=== PATIENT | female | born 1980 | race Caucasian/White ===

== ENCOUNTER 2020-03-12 08:45 | Outpatient (RCR) | payer BC, SELFPAY ==
[2020-03-12 08:56] VITALS: BMI 42.5
[2020-03-12 08:57] VITALS: BMI 42.5
== END 2020-05-27 14:40 | disposition home or self-care (01) ==
LOC: ANHDMC 08:45
PROVIDERS: PCP Nurse Practitioner Family; Visit Provider Obstetrics & Gynecology
DX: O24.419 Gestational diabetes mellitus in pregnancy, unspecified control (principal); Z3A.00 Weeks of gestation of pregnancy not specified; Z71.89 Other specified counseling; Z71.3 Dietary counseling and surveillance
CPT/HCPCS: 97802; G0108

== ENCOUNTER 2020-04-30 07:47 | Outpatient (RCR) | payer BC, SELFPAY ==
[2020-03-28 10:52] VITALS: BP 122/69; PULSE 111
[2020-04-04 17:18] VITALS: BP 121/68; PULSE 93
[2020-04-11 09:53] VITALS: BP 112/64; PULSE 95
[2020-04-18 17:01] VITALS: BP 117/62; PULSE 82
[2020-04-24 11:06] VITALS: BP 113/68; PULSE 89
--- NOTE | ~2020-04-30 | US_ITS ---
EXAMINATION: US OB BPP wo non-stress DATE: 04/24/2020 11:00 INDICATION: Gestational diabetes. Variable decelerations. Third trimester. TECHNIQUE: Real-time pelvic ultrasound was performed. COMPARISON: None. FINDINGS: There is a single living fetus in vertex presentation. The placenta is anterior. heart rate is 131 beats per minute (bpm). Biophysical profile performed by the technologist: breathing (30 sec sustained breathing in 30 minutes): 2 out of 2 movement (3 gross body movements in 30 minutes): 2 out of 2 tone (one episode of limvovy-uihgbxlus-wzhcbtn limb movement): 2 out of 2 Amniotic fluid pocket (2 cm): 2 out of 2 Total score: 8 out of 8 IMPRESSION: 1. Single living fetus in vertex presentation. 2. Biophysical profile 8 out of 8. Reviewed, dictated and finalized at location A.
[2020-04-30 08:24] VITALS: BP 114/65; PULSE 93
== END 2020-05-09 08:10 | disposition home or self-care (01) ==
LOC: ANHOBOP 07:47
PROVIDERS: PCP Nurse Practitioner Family; Visit Provider Obstetrics & Gynecology
DX: P59.9 Neonatal jaundice, unspecified (principal)
CPT/HCPCS: 59025; 76819

== ENCOUNTER 2020-05-06 13:32 | Observation (INO) | payer BC, SELFPAY ==
--- NOTE | 2020-05-06 13:32 | OBADM ---
This patient, Aviva Arreola, admitted to the OB room Labor/Delivery/Recovery 109 for observation. Patient/family oriented to hospital policies and general routines including ID bracelet, bed and alarms, visiting hours, pain management, procedures, bathroom and other care routines, personal items, smoking policy, room service/diet, and visiting hours. Patient/Family are encouraged to report perceived risks to care and to ask questions if they do not understand what they are told or what they should do.
[2020-05-06 13:50] VITALS: BMI 42.1
--- NOTE | 2020-05-26 09:07 | PM.OBTRLD ---
OB - Triage/Final Diagnosis Visit Information Comments/Additional reasons for admission: I have assessed the risk for this patient, Aviva Arreola, and determined that she would benefit from observation care. Final Diagnosis (1) False labor: Code(s): O47.9 - False labor, unspecified Status: Acute
== END 2020-05-06 15:12 | disposition home or self-care (01) ==
PROVIDERS: Admitting Provider Obstetrics & Gynecology; PCP Nurse Practitioner Family; Visit Provider Obstetrics & Gynecology
DX: O47.1 False labor at or after 37 completed weeks of gestation (principal); Z3A.38 38 weeks gestation of pregnancy
CPT/HCPCS: 84112; G0378; G0379

== ENCOUNTER 2020-05-08 06:13 | Inpatient (IN) | payer BC, SELFPAY ==
[2020-05-08] VITALS (108 sets, daily range): BP systolic 99–162; BP diastolic 48–147; PULSE 80–149; RESP 16; TEMP 36.6–37.3; O2SAT 95–100; BMI 42.1
--- OUTSIDE RECORDS SUMMARY | 2020-05-08 06:17 | XMS_ITS | Encounter Summary ---
:1980 Author Care Team Providers Name Role Phone Lala Shetty NP Primary Care Provider Unavailable Reason for Visit injection Assessment and Plan 1. Administration of diphtheria, pertussis, and tetanus vaccine ? Adacel (Tdap Adolesn/Adult )(PF)2 Lf-(2.5-5-3-5)-5 Lf/0.5 mL IM syringe Discussion Note: None recorded.Patient educational handouts: No information available. Plan of Care Reminders Provider Appointments None ? ? recorded. Lab None ? ? recorded. Referral None ? ? recorded. Procedures None ? ? recorded. Surgeries None ? ? recorded. Imaging None ? ? recorded. Medications Name Start Date ? ? albuterol sulfate HFA 90 mcg/actuation aerosol inhaler ? INHALE 2 PUFFS BY MOUTH EVERY 6 HOURS NEEDED azithromycin 250 mg tablet ? TAKE 2 TABLETS (500 MG) BY ORAL ROUTE O NCE DAILY FOR 1 DAY THEN 1 TABLET (250 MG) BY ORAL ROUTE ONCE DAILY FOR 4 DAYS benzonatate 200 mg capsule ? Take 1 capsule 3 times a day by oral route as needed for 7 days. ipratropium 0.5 mg-albuterol 3 mg (2.5 mg base)/3 mL n ebulization soln ? Inhale 3 mL 4 times a day by nebulization route. [place] 0.1 mg-20 mcg tablet ? oxycodone-acetaminophen 5 mg-325 mg tablet ? prednisone 10 mg tablet ? Take 1 tablet every day by oral route as directed for 7 days. Medications
--- OUTSIDE RECORDS SUMMARY | 2020-05-08 06:17 | XMS_ITS ---
:1980 Author Care Team Providers Name Role Phone APOLLO KAUFMAN MD Primary Care Provider [phone] JENNIFER DOMINGUEZ MD Primary Care Provider [phone] Allergies Code Code System Name Reaction Severity Status Onset 6211 RxNorm Lactose Anaphylaxis ? Active ? NKDA ? Medications Name Status Start Date Stop Date ? ? Mirena 20 mcg/24 hours (6 yrs) 52 mg intrauterine device Active 12/26/2012 Not available Take by intrauterine route. Problems Name Status Onset Date Source ? Obesity Active ? Encounter Tobacco Dependence Syndrome Active ? [place] unter Procedures Date Name Performed by ? 02/08/2002 Appendectomy Information not avai lable Results Lab Results None recorded. Past Encounters None recorded. Social History Tobacco Smoking Status Heavy Tobacco Smoker (1/2 pack per a day) Vaccine List None recorded. Plan of Care Reminders Provider Appointments None ? ? recorded. Lab None ? ? recorded. Referral None ? ? recorded. Procedures None ? ? recorded. Surgeries None ? ? recorded. Imaging None ?
--- OUTSIDE RECORDS SUMMARY | 2020-05-08 06:17 | XMS_ITS ---
:1980 Author Care Team Providers Name Role Phone WILLIAM TAYLOR NP Primary Care Provider Unavailable Allergies Code Code System Name Reaction Severity Status Onset NKDA ? Medications Name Status Start Date Stop Date ? ? albuterol sulfate HFA 90 mcg/actuation aerosol inhaler Active ? Not available INHALE 2 PUFFS BY MOUTH EVERY 6 HOURS NEEDED amoxicillin 500 mg capsule Completed ? 10/06 TK ONE C PO TID azithromycin 250 mg tablet Active ? Not a vailable benzonatate 200 mg capsule Active ? Not a vailable ibuprofen 600 mg tablet Completed ? 09/03/19 19 TK ONE T PO Q 6 H PRF PAIN. TK WF. ipratropium 0.5 mg-albuterol 3 mg (2.5 mg base)/3 mL nebulizatio n soln Active ? Not available Inhale 3 mL 4 times a day by nebulization route. [place] 0.1 mg-20 mcg tablet Active ? No t available oxycodone-acetaminophen 5 mg-325 mg Active ? Not available tablet prednisone 10 mg tablet Active ? Not avai lable Problems Name Status Onset Date Source ? Vitamin D Deficiency Active 10/06/2016 ? Family History of Diabetes Mellitus Active 10/06/2016 ? Family History of Thyroid Disorder Active 10/06/2016 ? Active or Passive Immunization Active 10/06/2016 ? Adult Health Examination Active 10/06/2016 ? Hyperlipidemia Screening Active 10/06/2016 ? Exercise-induced Asthma Active 03/23/2017 ? Cough Active 03/23/2017 ? Smoker Active 01/23/2019 ? Procedures Date
--- OUTSIDE RECORDS SUMMARY | 2020-05-08 06:17 | XMS_ITS ---
:1980 Author Care Team Providers Name Role Phone JENNIFER DOMINGUEZ MD Primary Care Provider [phone] Allergies Code Code System Name Reaction Severity Status Onset NKDA ? Medications Name Status Start Date Stop Date ? ? albuterol sulfate HFA 90 mcg/actuation aerosol inhaler Active ? Not available INHALE 2 PUFFS Q 4 H PRN amoxicillin 500 mg capsule Active ? Not a vailable TK ONE C PO TID azithromycin 250 mg tablet Active ? Not a vailable benzonatate 200 mg capsule Active ? Not a vailable Diflucan 200 mg tablet Active ? Not avail able Take 1 tablet every 72 hours by oral route. ibuprofen 600 mg tablet Active ? Not avai lable TK ONE T PO Q 6 H PRF PAIN. TK WF. [place] 0.1 mg-20 mcg tablet Active ? No t available oxycodone-acetaminophen 5 mg-325 mg tablet Active ? Not available prednisone 10 mg tablet Active ? Not avai lable sulfamethoxazole 800 mg-trimethoprim 160 Active ? Not available mg tablet Problems Name Status Onset Date Source ? Urinary Tract Infectious Disease Active ? Encounter Vaginitis and Vulvovaginitis Active ? Enc ounter Procedures Date Name Performed by ? ? Appendectomy Information not avai lable Results Lab Results Date Name Specimen Result Interpretation Descriptio
[2020-05-08 06:55] LABS: Glucose Point of Care 107 (65-105)
[2020-05-08 07:19] LABS: Basophils Percent Auto 0.3 % (0.2-1.2); Eosinophils Absolute Auto 0.2 K/mm3 (0-0.3); Eosinophils Percent Auto 1.3 % (0-4.4); Hemoglobin 12.6 g/dL (12.0-15.0); Immature Granulocyte Absolute 0.09 K/mm3 (0.00-0.031); Immature Granulocyte Percent A 0.8 % (0-0.5); Lymphocytes Absolute Auto 2.17 K/mm3 (0.9-3.2); Lymphocytes Percent Auto 19.1 % (18.3-44.2); Mean Corpuscular HGB Conc 33.2 g/dl (32-36); Mean Corpuscular Volume 84.4 fl (80-100); Mean Platelet Volume 9.3 fl (7.4-10.4); Monocytes Absolute Auto 0.7 K/mm3 (0.1-0.6); Monocytes Percent Auto 6.2 % (2.6-8.5); Neutrophils Absolute Auto 8.2 K/mm3 (1.3-6.7); Neutrophils Percent Auto 72.3 % (45.5-73.1); Platelet Count Result 256 k/mm3 (150-375); Red Cell Distribution Width 14.1 % (11.5-14.5); White Blood Count 11.4 K/mm3 (4.5-10.0)
[2020-05-08] MEDS: OXYTOCIN 30 UNITS/NS 500 ML 30 UNITS/500 ML BAG IV CONT ×2 (07:20→14:50)
[2020-05-08] MEDS: LACTATED RINGERS 1,000 ML 125 ML IV CONT (07:20)
--- NOTE | 2020-05-08 08:45 | WPDOBADMIT ---
Obstetrics - Admit Note Admission Note: record reviewed. Additions to the history and/or subsequent changes in the physical findings follow. 39 y/o at 38 2/7 weeks with poorly controlled A2DM, here for induction of labor. GBS neg. AVSS NST reactive TOCO: contractions every 4 min ABD soft, nontender, gravid, vertex EXT nontender Cervix 4/50/-2. AROM with clear fluid. IUPC placed. Accucheck 107 A: IUP a 38 2/7 weeks. A2DM with worsening glycemic control. P: Offered induction of labor. Reviewed risks, benefits, alternatives, including risks associated with prematurity. She understands and elects to continue with induction.
[2020-05-08 09:02] LABS: Glucose Point of Care 83 (65-105)
[2020-05-08 11:09] LABS: Glucose Point of Care 85 (65-105)
--- NOTE | 2020-05-08 12:10 | WPDANESEPPF ---
Anes - Initial Pre Proc Eval Date/Time: 05/08/20 12:10 Surgeon: Pipe Knott MD Pre Op Diagnosis: Induction of labor Patient Data Age: 39 Gender: F Height: 5 ft 3 in Weight: 108 kg Last Vital Signs Temp 37.3 C 05/08/20 12:08 Pulse 95 05/08/20 12:08 BP 119/60 05/08/20 12:08 Pulse Ox 100 05/08/20 12:08 Allergies Allergy/AdvReac Type Severity Reaction Status Date / Time No Known Allergies Allergy Verified 04/11/20 09:29 Home Medications Medication Instructions Recorded Confirmed Type PNV cmb#95-ferrous fumarate-FA 1 tablet PO DAILY 04/11/20 05/08/20 History [] cetirizine [Zyrtec] 10 mg PO HS 04/11/20 05/08/20 History fluticasone propionate 1 puff INHALATION BID 04/11/20 05/08/20 History glyburide 5 mg PO BID 04/11/20 05/08/20 History Laboratory Tests 05/08/20 05/08/20 05/08/20 06:33 06:53 06:53 WBC 11.4 K/mm3 H K/mm3 (4.5-10.0) RBC 4.50 M/mm3 M/mm3 (4.2-5.4) Hgb 12.6 g/dL g/dL (12.0-15.0) Hct 38.0 % % (37.0-47.0) MCV 84.4 fl fl (80-100) MCH 28.0 pg pg (26-34) MCHC 33.2 g/dl g/dl (32-36) RDW 14.1 % % (11.5-14.5) Plt Count 256 k/mm3 k/mm3 (150-375) MPV 9.3 fl fl (7.4-10.4) Immature Gran % (Auto) 0.8 % H % (0-0.5) Neut % (Auto) 72.3 % % (45.5-73.1) Lymph % (Auto) 19.1 % % (18.3-44.2) [place] % (Auto) 6.2 % % (2.6-8.5) Eos % (Auto) 1.3 % % (0-4.4) Baso % (Auto) 0.3 % % (0.2-1.2) Lymph # (Auto) 2.17 K/mm3 K/mm3 (0.9-3.2) [place] # (Auto) 0.7 K/mm3 H K/mm3 (0.1-0.6) Eos # (Auto) 0.2 K/mm3 K/mm3 (0-0.3) Baso # (Auto) 0.0 K/mm3 K/mm3 (0.0-0.1) Abs Immat Gran (auto) 0.09 K/mm3 H K/mm3 (0.00-0.031) Absolute Neuts (auto) 8.2 K/mm3 H K/mm3 (1.3-6.7) Absolute Nucleated RBC 0.0 K/mm3 K/mm3 (0.0-0.012) Nucleated RBC % 0.0 % % (0.0-0.2) POC Capillary Glucose 107 mg/dl mg/dl (65-105) RPR Pending Blood Type Antibody Screen 05/08/20 05/08/20 05/08/20 06:53 09:01 11:06 WBC RBC Hgb Hct MCV MCH MCHC RDW Plt Count MPV Immature Gran % (Auto) Neut % (Auto) Lymph % (Auto) [place] % (Auto) Eos % (Auto) Baso % (Auto) Lymph # (Auto) [place] # (Auto) Eos # (Auto) Baso # (Auto) Abs Immat Gran (auto) Absolute Neuts (auto) Absolute Nucleated RBC Nucleated RBC % POC Capillary Glucose 83 mg/dl mg/dl 85 mg/dl mg/dl (65-105) (65-105) RPR Blood Type A Positive Antibody Screen Negative Patient hx anesthesia problems: none Family hx anesthesia problems: none PMFSH Past Medical History Medical History Diabetes Family History Family History Sibling Hypertension Mother Hypertension Diabetes mellitus Social History Social History Smoking status: Former smoker Tobacco type: cigarettes Second hand tobacco smoke exposure: No Smoking end date: 07/01/20 Substance use: never Gender identity (if verbalized by the patient): Female Spiritual care concerns: No Anes - Eval Final PreProcedure Day of Procedure 05/08/20 12:10 Patient weight: morbidly obese Heart: regular rate and rhythm Lungs: clear to auscultation Neurological: alert and oriented ASA classification: III Emergent: no Anesthetic plan: proceed Anesthesia type and monitoring: regional
[2020-05-08 13:03] LABS: Glucose Point of Care 92 (65-105)
[2020-05-08 13:25] LABS: Rapid Plasma Reagin Non-Reactive (NonReactive)
--- NOTE | 2020-05-08 14:30 | P.PCNOB_ITS ---
OB - Delivery Note Procedure Delivery date: 05/08/20 Procedure: Induction of labor with events: Gestational Diabetes Intrapartal events: None Induction method: AROM and per pitocin protocol Delivery monitor: external FHT, external uterine and internal uterine Route of delivery: Laceration Description: None Specimen: Yes (cord blood) Quantitative Blood Loss (ml): 120 Anesthesia type: Epidural Disposition: PACU Complications: None Narrative: 39 y/o at 38 2/7 weeks gestation who presented to the hospital for induction of labor. Oxytocin was administered intravenously. Accuchecks were between 83 and 107 throughout labor. Amniotomy was performed with return of clear fluid. She received an epidural for pain control. Her labor progressed and her cervix dilated completely. She pushed with good effort and delivered the 's head to the perineum, followed by the body. The nose and mouth were bulb suctioned. After a delay, the cord was clamped and cut. The was handed off the field. Cord blood was collected. The placenta delivered spontaneously and was grossly normal in appearance. The usual 3 vesse l cord was noted. The perineum was intact. Needle and instrument counts were correct. The patient was taken to recovery room in stable condition. The infant went to the nursery in stable condition. I was present and scrubbed for the entire delivery. [place] Baby Date of : 05/08/20 Time of : 14:12 Weeks of gestation at delivery: 38 Infant gender: Female Weight (pounds): 7 Weight (ounces): 14 presentation: vertex position: Left Occiput Anterior Placenta delivery description: Spontaneous and Normal Configuration cord vessel description: 3 Vessels and Delayed Cord Clamping score one minute: 9 score five minutes: 9
[2020-05-08] MEDS: IBUPROFEN 600 MG TABLET PO (19:49)
[2020-05-08] MEDS: FLUTICASONE PROP 44 MCG (*SP) 10.6 GM 1 PUFF INHALATION (20:00)
[2020-05-09] MEDS: IBUPROFEN 600 MG TABLET PO ×4 (04:47→23:35)
[2020-05-09 05:45] LABS: Hematocrit 37.9 % (37.0-47.0); Hemoglobin 12.2 g/dL (12.0-15.0)
[2020-05-09 07:25] VITALS: BP 123/66; PULSE 82; RESP 18; TEMP 37; O2SAT 98
--- NOTE | 2020-05-09 07:30 | PC.NURSE ---
PT introductions made and plan of care discussed per post . pain management, breast feeding, daily care activities. PT verbalized understanding of such care.
--- NOTE | 2020-05-09 08:12 | WPDANLDPN2 ---
Anes-Prog Note L&D Date/Time: 05/09/20 08:12 Comfortable throughout: labor and delivery Neuraxial method: epidural Epidural/Spinal procedure site: clean & non-tender Neuro status: Neuro function grossly intact. Cardiovascular status: normal Respiratory status: normal Airway patency: baseline Mental status: baseline Post-Op hydration status: normal Vital Signs: Last Vital Signs Temp 37.0 C 05/09/20 07:25 Pulse 82 05/09/20 07:25 Resp 18 05/09/20 07:25 BP 123/66 05/09/20 07:25 Pulse Ox 98 05/09/20 07:25 Pain score (VAS): 0 I/O: Intake & Output 05/08/20 05/09/20 05/09/20 23:59 07:59 15:59 Output Total 105 Balance -105 Post-procedural complaints: none Patient feedback: Patient satisfied with anesthetic care.
--- NOTE | 2020-05-09 08:15 | PC.NURSE ---
Consulted with patient, mother reports infant has fed well since . Mother has nipple discomfort with latch during first part of the feeding that quickly resolves. Reviewed nipple care of lanolin, warm compresses several times per day and gel pads as needed. Reviewed infant feeding cues, frequencies, duration of feedings, feeding elimination flow sheet, and signs of adequate intake. Demonstrated stimulation techniques to wake for feeding. Assisted with to breast. Reviewed positioning/alignment in cross cradle, holding breast in U hold and guided asymmetrical latch on. Infant was able to latch within a few attempts. Infant nursed eagerly, with steady draws and frequent swallowing noted. Reviewed signs of a correct latch, effective nursing and suck swallow ratio. Infant was able to maintain latch. Mother reported tenderness, infant had slipped to shallow latch. Demonstrated how to adjust latch more deeply while feeding. Mother quickly reports she can feel infant is latched more deeply and has minimal tenderness. Mother reports she was using the cradle and infant was not latched as deep. Suggested to stimulate infant while feeding to keep awake and nursing effectively for increased stimulation and increased intake. Instructed mother to call out for RN assistance if she is unable to latch for feeding or she has discomfort with nursing.
[2020-05-09] MEDS: FLUTICASONE PROP 44 MCG (*SP) 10.6 GM 1 PUFF INHALATION (09:30)
[2020-05-09] MEDS: MULTIVIT/MIN/PREN/FOL AC/IRON TABLET 1 TAB PO (09:50)
[2020-05-09] MEDS: ACETAMINOPHEN 325 MG TABLET 650 MG PO ×3 (09:50→23:35)
[2020-05-09 11:54] VITALS: BP 112/71; PULSE 76; RESP 18; TEMP 36.8; O2SAT 98
--- NOTE | 2020-05-09 12:01 | PM.OBPNVD ---
OB - PN: Subj Subjective Date/time seen: 05/09/20 12:01 Narrative: Pain OK. OB - PN: Obj Data Labs CBC & Chem 7: 05/09/20 04:53 Labs: Laboratory Results - last 24 hr 05/08/20 05/08/20 05/09/20 06:53 13:01 04:53 Hgb 12.2 Hct 37.9 POC Capillary Glucose 92 RPR Non-reactive OB - PN A/P Plan Comments: A: PPD#1, doing well. P: Routine care. Exam Psych: Other: AVSS ABD soft, nontender, fundus firm EXT nontender
--- NOTE | 2020-05-09 12:01 | PM.OBDSVD ---
DS: Admitting Diagnosis Admitting Diagnosis Admitting Diagnosis: IUP at 38 2/7 weeks Poorly controlled A2DM Favorable cervix DS: Discharge Diagnosis Discharge Diagnosis (1) (normal spontaneous vaginal delivery): Code(s): O80 - Encounter for full-term uncomplicated delivery Status: Acute (2) Gestational diabetes mellitus: Code(s): O24.419 - Gestational diabetes mellitus in , unspecified control Status: Acute OB - DS: Summary OB Procedures : None OB Procedures Intrapartum: Spontaneous Vag Delivery OB Procedures: : None DS: Data Data Completed and Pending Pending studies at discharge: Pending at discharge 05/08/20 14:43 Surgical [PTH] Routine Labs on day of discharge: Labs from last 24 hours 05/09/20 05/08/20 05/08/20 04:53 13:01 06:53 Hgb 12.2 Hct 37.9 POC Capillary Glucose 92 RPR Non-reactive Discharge Plan Discharge Attending physician on discharge: Pipe Knott Consulting providers: [facility] Discharging Clinician: Pipe Knott Patient Disposition: Home, Self-Care Activity: no preference Diet: regular Discharge Instructions: Education: Mom and Baby Guide Given to: Mother Follow-Up: Call your delivering provider's office for an appointment to be seen in: 6 Weeks Mom and baby should come to the [facility] for the follow-up appointment. Appointment Date/Time: May 13, 2020 at 11:00 am What to expect at your follow-up visit: Blood Pressure Check Physical Assessment Call [phone] if you are unable to keep your appointment time. BREAST CARE: * Wear a snug supportive bra. * For engorgement discomfort: Breast Feeding: * Apply warm moist washcloths * Express milk as needed to relieve engorgement * Wear loose clothing * For sore nipples: * Identify correct latch-on * Apply warm moist washcloths before and after nursing * Air dry nipples after nursing * May apply Lansinoh cream to nipples EPISIOTOMY/PERINEAL CARE: * Until bleeding stops, use your chanda bottle after urinating * Change your pad frequently throughout the day * You may take sitz baths several times a day (fill your bathtub with warm water and soak for 20 minutes.) Do NOT bathe in the water * No tub baths until seen by your physician - You may shower ACTIVITY: * Rest as much as possible. * Do not exercise or lift anything heavier than your baby (such as laundry or other children.) * Avoid stairs or driving as much as possible. * Do not put anything into the vagina. No douching, tampons, or sexual activity until seen by physician. NOTIFY PHYSICIAN IF YOU HAVE ANY QUESTIONS OR IF ANY OF THE FOLLOWING SYMPTOMS OCCUR: * If your perineum becomes red, swollen, or more painful than what you have experienced in the hospital. * If your vaginal bleeding becomes foul smelling. * If your vaginal bleeding becomes more heavy than a period or if your bleeding changes from pink to bright red. However, you may pass an occasional walnut-sized clot once or twice for the first week . * If you experience a sharp, shooting pain in you calves. * If you discover a hard, reddened area on your breast or if you experience flu-like symptoms. *Temperature of 100.4 or higher DIET: * Eat regular, well-balanced meals. * Drink plenty of fluids daily. If , drink to thirst.Call or return if temperature above 100.4? F, increased abdominal pain, increased vaginal bleeding or any new problems. Stand Alone Forms: General Discharge Information Follow-up/Referrals: Pipe Knott MD [Physician] - 6 Weeks Discharge Medications: New ibuprofen 600 mg tablet 600 mg PO Q6H PRN (Reason: cramps) Qty: 30 RF: 0 acetaminophen [Mapap (acetaminophen)] 325 mg Tablet 650 mg PO Q6H PRN (Reason: Mild Pain (1-3) Or Head
[2020-05-09 20:30] VITALS: BP 124/81; PULSE 78; RESP 18; TEMP 36.6; O2SAT 99
[2020-05-10] MEDS: IBUPROFEN 600 MG TABLET PO (05:37)
[2020-05-10] MEDS: ACETAMINOPHEN 325 MG TABLET 650 MG PO (05:37)
[2020-05-10 07:45] VITALS: BP 126/88; PULSE 77; RESP 16; TEMP 36.5; O2SAT 99
--- NOTE | 2020-05-10 07:46 | PM.OBDSVD ---
DS: Admitting Diagnosis Admitting Diagnosis Admitting Diagnosis: gestational diabetes OB - DS: Summary OB Procedures : None OB Procedures Intrapartum: Spontaneous Vag Delivery OB Procedures: : None Status at Discharge Functional status at discharge: independent ambulation Overall status at discharge: patient is back to baseline Time Spent with Patient Time attestation: Total time spent providing and/or coordinating discharge services: Time spent: Less than 30 minutes Exam Const: General: comfortable and no acute distress Resp: Effort & Inspection: normal respiratory effort Auscultation: clear to auscultation bilaterally Cardio: Rate: regular rate GI: GI Palp: Yes Soft to palpation Auscultation: normal bowel sounds Other: Fundus firm below umbilicus Psych: Appearance: grossly normal Mental Status: mental status grossly normal Affect: normal affect DS: Data Data Completed and Pending Pending studies at discharge: Pending at discharge 05/08/20 14:43 Surgical [PTH] Routine Discharge Plan Discharge Attending physician on discharge: Pipe Knott Discharging Clinician: Pipe Knott Patient Disposition: Home, Self-Care Activity: no preference Diet: regular Discharge Instructions: Call or return if temperature above 100.4? F, increased abdominal pain, increased vaginal bleeding or any new problems. Stand Alone Forms: General Discharge Information Follow-up/Referrals: Piep Knott MD [Physician] - 6 Weeks Discharge Medications: New ibuprofen 600 mg tablet 600 mg PO Q6H PRN (Reason: cramps) Qty: 30 RF: 0 acetaminophen [Mapap (acetaminophen)] 325 mg Tablet 650 mg PO Q6H PRN (Reason: Mild Pain (1-3) Or Headache) Qty: 30 RF: 0 ibuprofen 600 mg Tablet 600 mg PO Q6H PRN (Reason: Cramping) Qty: 30 RF: 0 Azz-U-Lzueti Cream 1 applic topical PRN PRN (Reason: Sore Nipples) Qty: 28 RF: 0 Continued cetirizine [Zyrtec] 10 mg Tablet 10 mg PO HS RF: 0 glyburide 5 mg Tablet 5 mg PO BID RF: 0 fluticasone propionate 44 mcg/actuation Hfa Aerosol Inhaler 1 puff INHALATION BID RF: 0 PNV cmb#95-ferrous fumarate-FA [] 28 mg iron- 800 mcg Tablet 1 tablet PO DAILY RF: 0 Date of admission: 05/08/20 06:13 Primary Care Provider: Sena,Lala Birch Admitting Provider: Pipe Knott Attending physician on admission: Pipe Knott Condition: Stable
--- NOTE | 2020-05-10 10:05 | PC.NURSE ---
Mother called out for assist with feeding. Mother reports nipple discomfort with latch and during most of feeding. Both nipples are slightly excoriated from possible shallow latch. Reviewed nipple care of lanolin, warm compresses several times per day and gel pads as needed. Reviewed positioning/alignment in cross cradle, holding breast in U hold and guided asymmetrical latch on. was able to latch within a few attempts. Infant nursed eagerly, with steady draws and frequent swallowing noted. Reviewed signs of a correct latch, effective nursing and suck swallow ratio. Infant was able to maintain latch. Mother reported tenderness at times, had slipped to shallow latch. Demonstrated how to adjust latch more deeply while feeding. Mother quickly reports she can feel infant is latched more deeply and has minimal tenderness. Mother was able to independently adjust latch more deeply. Suggested to stimulate infant while feeding to keep infant awake and nursing effectively for increased stimulation and increased intake. Instructed mother to call out for RN assistance if she is unable to latch for feeding or she has discomfort with nursing. Discussed the importance of deep latch for her comfort and or increased stimulation and intake for infant. Reviewed softening before latch when her milk is in to assist with maintaining deep latch. Mother is able to independently latch with appropriate positioning/alignment. She denies any nipple discomfort, is feeding as required and waking to feed if needed. has had at least 8 effective feedings in the past 24 hours, and is currently meeting outcomes for weight, output, jaundice and feeding frequencies. Mother states she feels confident to continue effective at home. Reviewed transition to breast milk, signs of adequate intake, and engorgement/relief. Instructed to call ICP if intake/output less than required. Reviewed regular medications mother is taking. Information provided per [place]. Reviewed community resources on the [facility] website and in the Mom/Baby guide. Information on outpatient services provided. Mother has no further questions at this time.
[2020-05-10] MEDS: MULTIVIT/MIN/PREN/FOL AC/IRON TABLET 1 TAB PO (10:15)
[2020-05-13 11:08] VITALS: BP 130/81; PULSE 79; RESP 16; TEMP 36.8; O2SAT 99
== END 2020-05-10 12:03 | disposition home or self-care (01) | DRG 807 ==
LOC: ANHLDR 14:38 → ANHOB2 05-09 12:15 → ANHLDR 05-10 19:35 → ANHOB2 05-10 19:35
PROVIDERS: Admitting Provider Obstetrics & Gynecology; PCP Nurse Practitioner Family; Visit Provider Student in an Organized Health Care Education/Training Program
DX: O24.429 Gestational diabetes mellitus in childbirth, unspecified control (principal); Z37.0 Single live birth; Z3A.38 38 weeks gestation of pregnancy; O62.3 Precipitate labor; O99.214 Obesity complicating childbirth; E66.01 Morbid (severe) obesity due to excess calories; O99.52 Diseases of the respiratory system complicating childbirth; J45.909 Unspecified asthma, uncomplicated
CPT/HCPCS: 36415; 82948; 85014; 85018; 85025; 86592; 86850; 86900; 86901; 88307; 94640; A9270; J2590; J2795; J7120

== ENCOUNTER 2020-05-13 12:00 | Outpatient (CLI) | payer BC, SELFPAY ==
[2020-05-13 12:20] LABS: Basophils Percent Auto 0.5 % (0.2-1.2); Eosinophils Absolute Auto 0.3 K/mm3 (0-0.3); Eosinophils Percent Auto 3.6 % (0-4.4); Hemoglobin 13.6 g/dL (12.0-15.0); Immature Granulocyte Absolute 0.05 K/mm3 (0.00-0.031); Immature Granulocyte Percent A 0.6 % (0-0.5); Lymphocytes Absolute Auto 1.61 K/mm3 (0.9-3.2); Lymphocytes Percent Auto 20.1 % (18.3-44.2); Mean Corpuscular HGB Conc 32.4 g/dl (32-36); Mean Corpuscular Volume 86.6 fl (80-100); Mean Platelet Volume 8.5 fl (7.4-10.4); Monocytes Absolute Auto 0.5 K/mm3 (0.1-0.6); Monocytes Percent Auto 6.4 % (2.6-8.5); Neutrophils Absolute Auto 5.5 K/mm3 (1.3-6.7); Neutrophils Percent Auto 68.8 % (45.5-73.1); Platelet Count Result 241 k/mm3 (150-375); Red Blood Count 4.85 M/mm3 (4.2-5.4); Red Cell Distribution Width 14.2 % (11.5-14.5)
--- NOTE | 2020-05-13 12:24 | PM.OBTRLD ---
OB - Triage/Final Diagnosis Visit Information Date of evaluation: 05/13/20 Reason for evaluation: other (pp headache/htn) Comments/Additional reasons for admission: I have assessed the risk for this patient, Aviva Arreola, and determined that she would benefit from observation care.
[2020-05-13 12:34] LABS: Alanine Aminotransferase 34 U/L (4-35); Albumin Level 3.5 g/dL (3.5-5.1); Alkaline Phosphatase 91 U/L (38-126); Anion Gap 4 mmol/L (8-16); Aspartate Amino Transferase 40 U/L (14-36); Bilirubin,Total 0.2 mg/dL (0.2-1.3); Blood Urea Nitrogen 8 mg/dL (7-17); Calcium 8.5 mg/dL (8.4-10.2); Carbon Dioxide 25 mmol/L (22-30); Chloride 109 mmol/L (98-107); Estimated Glomerular Filt Rate > 60; Glucose 95 mg/dL (65-105); Potassium 4.1 mmol/L (3.4-5.0); Sodium 138 mmol/L (137-145)
--- NOTE | 2020-05-13 12:40 | PC.NURSE ---
1238-Dr.Dalla Mohr called and given lab results. Orders received to discharge home and have pt f/u with later this week.
--- NOTE | 2020-05-13 12:41 | PC.NURSE ---
1200-Pt had a f/u appt and c/o RHOADES that shes had for a couple days. Pt rating RHOADES 03/20, bp WNL.
== END 2020-05-13 13:20 | disposition home or self-care (01) ==
PROVIDERS: PCP Nurse Practitioner Family; Visit Provider Obstetrics & Gynecology
DX: R03.0 Elevated blood-pressure reading, without diagnosis of hypertension (principal)
CPT/HCPCS: 36415; 80053; 84550; 85025

== ENCOUNTER → 2020-09-10 02:29 | Outpatient (CLI) | payer BC, SELFPAY ==
[2020-09-10 18:17] LABS: SARS-CoV-2 RNA PCR Negative
== END ==
PROVIDERS: PCP Nurse Practitioner Family; Visit Provider Family Medicine
DX: R50.9 Fever, unspecified (principal); Z20.822 Contact with and (suspected) exposure to COVID-19
CPT/HCPCS: C9803; U0003; U0005

== ENCOUNTER 2022-01-26 05:16 | Inpatient (IN) | payer BC, SELFPAY ==
[2022-01-26] VITALS (230 sets, daily range): BP systolic 61–153; BP diastolic 41–127; PULSE 62–192; RESP 16–18; TEMP 36.6–36.9; O2SAT 70–100; BMI 44.4
--- NOTE | 2022-01-26 05:37 | LDADM ---
This patient, Aviva Arreola, was admitted to Labor/Delivery/Recovery 103 on 01/26/22 at 05:16. Plans for labor, pain management and were discussed with patient. Patient/family oriented to hospital policies and general routines including ID bracelet, bed and alarms, visiting hours, pain management, procedures, bathroom and other care routines, personal items, smoking policy, room service/diet and guest tray routines, security routines, and visiting hours. Patient/Family are encouraged to report perceived risks to care and to ask questions if they do not understand what they are told or what they should do. See OBIX for further documentation.
[2022-01-26 06:09] LABS: Basophils Percent Auto 0.3 % (0.2-1.2); Eosinophils Absolute Auto 0.1 K/mm3 (0-0.3); Eosinophils Percent Auto 1.1 % (0-4.4); Hematocrit 37.2 % (37.0-47.0); Hemoglobin 12.1 g/dL (12.0-15.0); Immature Granulocyte Absolute 0.07 K/mm3 (0.00-0.031); Immature Granulocyte Percent A 0.7 % (0-0.5); Lymphocytes Absolute Auto 2.39 K/mm3 (0.9-3.2); Lymphocytes Percent Auto 22.8 % (18.3-44.2); Mean Corpuscular HGB Conc 32.5 g/dl (32-36); Mean Corpuscular Hemoglobin 27.2 pg (26-34); Mean Corpuscular Volume 83.6 fl (80-100); Mean Platelet Volume 9.5 fl (7.4-10.4); Monocytes Absolute Auto 0.8 K/mm3 (0.1-0.6); Monocytes Percent Auto 7.4 % (2.6-8.5); Neutrophils Absolute Auto 7.1 K/mm3 (1.3-6.7); Neutrophils Percent Auto 67.7 % (45.5-73.1); Platelet Count Result 271 k/mm3 (150-375); Red Blood Count 4.45 M/mm3 (4.2-5.4); Red Cell Distribution Width 14.2 % (11.5-14.5); White Blood Count 10.5 K/mm3 (4.5-10.0)
[2022-01-26] MEDS: OXYTOCIN 30 UNITS/NS 500 ML 30 UNITS/500 ML BAG IV CONT (08:15)
[2022-01-26] MEDS: LACTATED RINGERS 1,000 ML 125 ML IV CONT ×2 (08:15→15:35)
--- NOTE | 2022-01-26 09:00 | WPDOBADMIT ---
Obstetrics - Admit Note Admission Note: record reviewed. Additions to the history and/or subsequent changes in the physical findings follow. 41 y/o at 39 3/7 weeks here for induction of labor. GBS neg. Ultrasound 2 weeks ago showed EFW 8#2oz. AVSS NST reactive TOCO: contractions every 3-5 min ABD soft, nontender, gravid, vertex EXT nontender Cervix 4/50/-2. AROM with clear fluid. IUPC placed. A: IUP at term with favorable cervix, desiring induction of labor. P: Oxytocin. Anticipate .
[2022-01-26 09:17] LABS: Rapid Plasma Reagin Non-Reactive (NonReactive)
--- NOTE | 2022-01-26 09:45 | WPDANESEPP ---
Anes - Eval Pre Procedure Procedure: labor epidural Date/Time: 01/26/22 09:45 Surgeon: brady Preop Diagnosis: pain during labor Pre Op Diagnosis: IOL Patient Data Age: 41 Gender: F Height: 1.6 m Weight: 113.6 kg Last Vital Signs Pulse 85 01/26/22 09:00 BP 139/75 01/26/22 09:00 Pulse Ox 99 01/26/22 09:41 O2 Del Method Room Air 01/26/22 05:36 Allergies Allergy/AdvReac Type Severity Reaction Status Date / Time No Known Allergies Allergy Verified 04/11/20 09:29 Home Medications Medication Instructions Recorded Confirmed Type cetirizine 10 mg tablet (Zyrtec) 10 mg PO HS 04/11/20 05/08/20 History fluticasone propionate 44 1 puff inhalation BID 04/11/20 05/08/20 History mcg/actuation HFA aerosol inhaler vit no.95-ferrous 1 tablet PO DAILY 04/11/20 05/08/20 History fumarate 28 mg-folic acid 800 mcg tablet () albuterol sulfate 90 mcg/actuation 2 puff inhalation QID PRN Wheezing 01/17/22 01/17/22 History aerosol inhaler Laboratory Tests 01/26/22 01/26/22 01/26/22 06:00 06:00 06:00 WBC 10.5 K/mm3 H K/mm3 (4.5-10.0) RBC 4.45 M/mm3 M/mm3 (4.2-5.4) Hgb 12.1 g/dL g/dL (12.0-15.0) Hct 37.2 % % (37.0-47.0) MCV 83.6 fl fl (80-100) MCH 27.2 pg pg (26-34) MCHC 32.5 g/dl g/dl (32-36) RDW 14.2 % % (11.5-14.5) Plt Count 271 k/mm3 k/mm3 (150-375) MPV 9.5 fl fl (7.4-10.4) Immature Gran % (Auto) 0.7 % H % (0-0.5) Neut % (Auto) 67.7 % % (45.5-73.1) Lymph % (Auto) 22.8 % % (18.3-44.2) [place] % (Auto) 7.4 % % (2.6-8.5) Eos % (Auto) 1.1 % % (0-4.4) Baso % (Auto) 0.3 % % (0.2-1.2) Lymph # (Auto) 2.39 K/mm3 K/mm3 (0.9-3.2) [place] # (Auto) 0.8 K/mm3 H K/mm3 (0.1-0.6) Eos # (Auto) 0.1 K/mm3 K/mm3 (0-0.3) Baso # (Auto) 0.0 K/mm3 K/mm3 (0.0-0.1) Abs Immat Gran (auto) 0.07 K/mm3 H K/mm3 (0.00-0.031) Absolute Neuts (auto) 7.1 K/mm3 H K/mm3 (1.3-6.7) Absolute Nucleated RBC 0.0 K/mm3 K/mm3 (0.0-0.012) Nucleated RBC % 0.0 % % (0.0-0.2) RPR Non-reactive (NonReactive) Blood Type A Positive Antibody Screen Negative Patient hx anesthesia problems: none Family hx anesthesia problems: none Results Review: All pre-operative results and documents have been reviewed as part of the pre-operative evaluation. [facility] Past Medical History Medical History (Updated 01/26/22 @ 09:46 by Connie Helton CRNA) Asthma Diabetes IUP (intrauterine ), incidental Morbid obesity with BMI of 40.0-44.9, adult Family History Family History Sibling Hypertension Mother Hypertension Diabetes mellitus Social History Social History Smoking status: Former smoker Tobacco type: cigarettes Second hand tobacco smoke exposure: No Smoking end date: 08/09/19 Substance use: never Lack of Transportation: No Lack of Food: Never True Current Housing: I Have Housing Concerned About Future Housing: No Difficulty Paying Gas/Electric Bills: No Difficulty Paying for Meds: No Currently Unemployed: No Education: Associate Degree Difficulty w/ Childcare or Family Care: No Gender identity (if verbalized by the patient): Female Spiritual care concerns: No Exam Day of Procedure 01/26/22 09:45
--- NOTE | 2022-01-26 17:43 | P.PCNOB_ITS ---
OB - Delivery Note Procedure Delivery date: 01/26/22 Procedure: Induction of labor with Induction method: Per Pitocin Protocol Delivery augmentation: Rupture of Membranes Delivery monitor: External FHT, External Uterine and Internal Uterine Route of delivery: Laceration Description: None Quantitative Blood Loss (ml): 220 Anesthesia type: Epidural Disposition: PACU Complications: Shoulder dystocia Narrative: 41 y/o at 39 3/7 weeks gestation who presented to the hospital for induction of labor. Oxytocin was administered intravenously. Amniotomy was performed with return of clear fluid. She received an epidural for pain control. Her labor progressed and her cervix dilated completely. She pushed and delivered the 's head to the perineum. A shoulder dystocia was e ncountered. Fundal pressure and traction on the head were strictly avoided. McRobert's maneuver was employed. The anterior shoulder was unable to be grasped. The posterior (right) shoulder was able to be grasped and rotated clockwise. Delivery was rapidly effected subsequently. The nose and mouth were bulb suctioned. The infant was handed off the field. Cord blood was collected. The placenta delivered spontaneously and was grossly normal in appearance. The usual 3 vessel cord was noted. The perineum was intact. Excellent hemostasis resulted as did excellent reapproximation of the normal anatomy. Needle and instrument counts were correct. The patient was taken to recovery room in stable condition. The infant went to the nursery in stable condition. I was present and scrubbed for the entire delivery. [place] Baby Date of : 01/26/22 Time of : 17:35 Weeks of gestation at delivery: 39 Infant gender: Male Weight (pounds): 10 Weight (ounces): 10 presentation: vertex position: Right Occiput Anterior Placenta delivery description: Spontaneous and Normal Configuration Cord Vessel Description: 3 Vessels score one minute: 2 score five minutes: 8
[2022-01-26] MEDS: OXYTOCIN 30 UNITS/NS 500 ML 30 UNITS/500 ML BAG 125 UNITS IV CONT (18:14)
--- NOTE | 2022-01-26 19:53 | PM.OBDSVD ---
DS: Admitting Diagnosis Discharge Date 01/28/22 Admitting Diagnosis IUP at 39 3/7 weeks DS: Discharge Diagnosis Discharge Diagnosis (1) (normal spontaneous vaginal delivery): Code(s): O80 - Encounter for full-term uncomplicated delivery Status: Acute OB - DS: Summary OB Procedures : None OB Procedures Intrapartum: Spontaneous Vag Delivery OB Procedures: : None Time Spent with Patient Time attestation: Total time spent providing and/or coordinating discharge services: DS: Data Data Completed and Pending Labs on day of discharge: Labs from last 24 hours 01/26/22 01/26/22 01/26/22 06:00 06:00 06:00 WBC 10.5 H RBC 4.45 Hgb 12.1 Hct 37.2 MCV 83.6 MCH 27.2 MCHC 32.5 RDW 14.2 Plt Count 271 MPV 9.5 Immature Gran % (Auto) 0.7 H Neut % (Auto) 67.7 Lymph % (Auto) 22.8 [place] % (Auto) 7.4 Eos % (Auto) 1.1 Baso % (Auto) 0.3 Lymph # (Auto) 2.39 [place] # (Auto) 0.8 H Eos # (Auto) 0.1 Baso # (Auto) 0.0 Abs Immat Gran (auto) 0.07 H Absolute Neuts (auto) 7.1 H Absolute Nucleated RBC 0.0 Nucleated RBC % 0.0 RPR Non-reactive Blood Type A Positive Antibody Screen Negative Discharge Plan Discharge Attending physician on discharge: Pipe Knott Discharging Clinician: Pipe Knott Patient Disposition: Home, Self-Care Activity: pelvic rest Diet: regular Discharge Instructions: Call or return if temperature above 100.4? F, increased abdominal pain, increased vaginal bleeding or any new problems. Stand Alone Forms: General Discharge Information Follow-up/Referrals: Pipe Knott MD [Physician] - 6 Weeks Discharge Medications: New ibuprofen 600 mg tablet 600 mg PO Q6H PRN (Reason: cramps) Qty: 30 0RF Continued albuterol sulfate 90 mcg/actuation Hfa Aerosol Inhaler 2 puff INHALATION QID PRN (Reason: Wheezing) cetirizine [Zyrtec] 10 mg Tablet 10 mg PO HS fluticasone propionate 44 mcg/actuation Hfa Aerosol Inhaler 1 puff INHALATION BID PNV cmb#95-ferrous fumarate-FA [] 28 mg iron- 800 mcg Tablet 1 tablet PO DAILY Date of admission: 01/26/22 05:16 Primary Care Provider: Sena,Lala Birch Admitting Provider: Pipe Knott Attending physician on admission: Pipe Knott Condition: Stable
[2022-01-26] MEDS: IBUPROFEN 600 MG TABLET PO (20:14)
[2022-01-26] MEDS: BENZOCAINE 20% AER SPR (*SP) 56 GM CAN 1 SPRAY TOPICAL (20:14)
[2022-01-26] MEDS: WITCH HAZEL 40 PADS 1 PAD TOPICAL (20:14)
[2022-01-27] MEDS: IBUPROFEN 600 MG TABLET PO ×4 (02:54→23:08)
[2022-01-27 04:20] VITALS: BP 117/71; PULSE 86; RESP 16; TEMP 36.2; O2SAT 99
[2022-01-27 05:21] LABS: Hematocrit 32.8 % (37.0-47.0); Hemoglobin 10.5 g/dL (12.0-15.0)
[2022-01-27 08:40] VITALS: BP 125/82; PULSE 84; RESP 16; TEMP 36.6; O2SAT 99
--- NOTE | 2022-01-27 08:51 | PM.OBPNVD ---
OB - PN: Subj Subjective Date/time seen: 01/27/22 08:51 Narrative: Pain OK. Would like circumcision for son. OB - PN: Obj Data Labs 01/27/22 04:36 Labs: Laboratory Results - last 24 hr 01/26/22 01/27/22 06:00 04:36 Hgb 10.5 L Hct 32.8 L RPR Non-reactive OB - PN A/P Plan Comments: A: PPD#1, doing well. P: Reviewed circ. Routine care. Exam Psych: Other: AVSS ABD soft, nontender, fundus firm EXT nontender
[2022-01-27] MEDS: MULTIVIT/MIN/PREN/FOL AC/IRON TABLET 1 TAB PO (08:57)
--- NOTE | 2022-01-27 10:32 | WPDANLDPN2 ---
Anes-Prog Note L&D Date/Time: 01/27/22 10:32 Comfortable throughout: labor and delivery Neuraxial method: epidural Epidural/Spinal procedure site: clean & non-tender Neuro status: Neuro function grossly intact. Cardiovascular status: normal Respiratory status: normal Airway patency: baseline Mental status: baseline Post-Op hydration status: normal Vital Signs: Last Vital Signs Temp 97.9 F 01/27/22 08:40 Pulse 84 01/27/22 08:40 Resp 16 01/27/22 08:40 BP 125/82 01/27/22 08:40 Pulse Ox 99 01/27/22 08:40 O2 Del Method Room Air 01/26/22 20:50 Pain score (VAS): 0/10 I/O: Intake & Output 01/26/22 01/27/22 01/27/22 23:59 07:59 15:59 Intake Total 500 Output Total 710 Balance -210 Post-procedural complaints: none Patient feedback: Patient satisfied with anesthetic care.
[2022-01-27] MEDS: TETANUS,DIPHTHERIA,AC PERTUSSIS ADULT (0.5 ML) BOOSTRIX IM (11:31)
[2022-01-27 11:47] VITALS: BP 109/72; PULSE 81; RESP 16; TEMP 36.8; O2SAT 99
--- NOTE | 2022-01-27 14:27 | PC.NURSE ---
[id number] Introductions were made, then consulted with patient to assess needs related to . Mother led the conversation with her?plans to feed?her infant and the?experience so far with changes made surrounding infant's blood sugar levels and IVF's (D10). Mother was instructed earlier to not breastfeed her , pump and only formula feed her . mother is concerned about infant latching to the breast later and has concerns regarding pumping and bottle feeding that were discussed. Resources provided for inpatient and outpatient services using a resource guide and mom/baby guide. Mother voiced understanding of information and will call if there is a request for assistance. Reported to primary RN. Discussed the POC with Dr. Patterson.
[2022-01-27 16:00] VITALS: BP 130/81; PULSE 82; RESP 16; TEMP 36.6; O2SAT 99
[2022-01-27] MEDS: ACETAMINOPHEN 325 MG TABLET 650 MG PO (19:07)
[2022-01-27 19:20] VITALS: BP 126/77; PULSE 77; RESP 18; TEMP 36.6; O2SAT 98
[2022-01-28] MEDS: ACETAMINOPHEN 325 MG TABLET 650 MG PO ×2 (04:47→16:09)
--- NOTE | 2022-01-28 07:45 | PC.NURSE ---
PT introductions made and plan of care discussed per post , pain management, breast/bottle feeding, daily care activities, and blood sugars. PT received such instructions per one to one discussion, mom baby care guide and demonstrations this shift. PT sole recipient of such instructions and no barriers to learning identified at this time. PT verbalized understanding of such care.
[2022-01-28 08:25] VITALS: BP 118/82; PULSE 84; RESP 16; TEMP 36.5; O2SAT 99
--- NOTE | 2022-01-28 08:54 | PM.OBPNVD ---
OB - PN: Subj Subjective Date/time seen: 01/28/22 08:54 Narrative: Pain OK. Would like to go home. OB - PN: Obj Data Labs 01/27/22 04:36 OB - PN A/P Plan Comments: A: PPD#2, doing well. P: Home to f/u 6 weeks. Exam Psych: Other: AVSS ABD soft, nontender, fundus firm EXT nontender
[2022-01-28] MEDS: IBUPROFEN 600 MG TABLET PO ×2 (10:07→18:52)
--- NOTE | 2022-01-28 13:48 | PC.NURSE ---
[id number] Mother is demonstrating effectively with appropriate positioning/alignment. She denies any nipple discomfort and is responsively . Infant is currently meeting outcomes for weight, output, jaundice and feeding frequencies of 8-12 times in 24 hours. Mother declines any additional assistance/education at this time but voices concerns with the bottle feeding instead of early on. We discussed the breathing difficulties and the concerns early on after 's delivery. Mother is happy to be effectively at this time. Mother is encouraged to call for assistance if her doesn?t latch or there is discomfort with latching. Mother voiced understanding of information shared and mom and baby guide reviewed for additional resource information . Reported to the primary RN.
[2022-01-30 10:06] VITALS: BP 134/81; PULSE 81; RESP 20; TEMP 36.6
== END 2022-01-28 21:00 | disposition home or self-care (01) | DRG 807 ==
LOC: ANHLDR 19:54 → ANHOB2 20:47
PROVIDERS: Admitting Provider Obstetrics & Gynecology; PCP Nurse Practitioner Family; Visit Provider Obstetrics & Gynecology
DX: O99.52 Diseases of the respiratory system complicating childbirth (principal); Z37.0 Single live birth; Z3A.39 39 weeks gestation of pregnancy; O66.0 Obstructed labor due to shoulder dystocia; J45.909 Unspecified asthma, uncomplicated; Z23 Encounter for immunization
CPT/HCPCS: 36415; 85014; 85018; 85025; 86592; 86850; 86900; 86901; 90471; 90686; 90715; A9270; G0008; J2590; J2795; J7120

== ENCOUNTER 2022-05-23 12:42 | Emergency (ER) | payer BC, SELFPAY ==
--- NOTE | ~2022-05-23 | XR_ITS ---
EXAMINATION: XR chest 2V DATE: 05/23/2022 13:17 INDICATION: Cough TECHNIQUE: PA and lateral views of the chest are obtained. COMPARISON: None available FINDINGS: The lungs are free of acute opacities. No pleural effusion or pneumothorax. The cardiomedia stinal silhouette is normal. The visualized bones and soft tissues are unremarkable. IMPRESSION: 1. No acute cardiopulmonary abnormality. Reviewed, dictated and finalized at location A.
--- NOTE | 2022-05-23 12:49 | ED.URI ---
HPI - URI/Sore Throat General Chief Complaint: Upper Respiratory Infection Stated Complaint: cough,congestion Time Seen by Provider: 05/23/22 12:49 Source: patient Mode of arrival: ambulatory Limitations: no limitations History of Present Illness HPI Narrative: Aviva is a 41-year-old female patient presenting to the clinic today with complaints of cough and congestion x1 week. She reports no known fever. Has history of asthma and just picked up a new inhaler yesterday. Reports that she is having some mild shortness of breath with the cough and congestion. No chest pain. Cough is productive and she is bringing up some greenish brown phlegm. Former smoker MD elicited complaint: sore throat and nasal congestion Related Data Home Medications Medication Instructions Recorded Confirmed cetirizine 10 mg tablet (Zyrtec) 10 mg PO HS 04/11/20 05/23/22 fluticasone propionate 44 1 puff inhalation BID 04/11/20 05/23/22 mcg/actuation HFA aerosol inhaler vit no.95-ferrous 1 tablet PO DAILY 04/11/20 05/23/22 fumarate 28 mg-folic acid 800 mcg tablet () albuterol sulfate 90 mcg/actuation 2 puff inhalation QID PRN Wheezing 01/17/22 05/23/22 aerosol inhaler norethindrone (contraceptive) 0.35 0.35 mg PO DAILY 05/23/22 05/23/22 mg tablet Allergies Allergy/AdvReac Type Severity Reaction Status Date / Time No Known Allergies Allergy Verified 05/23/22 13:09 Review of Systems Review of Systems: Pertinent positives per HPI. Patient denies any fever, chills, rash, headache, visual changes, dizziness, chest pain, palpitations, nausea, vomiting, diarrhea, constipation, abdominal pain, or any urinary issues. [facility] Past Medical History Medical History Asthma Diabetes IUP (intrauterine ), incidental Morbid obesity with BMI of 40.0-44.9, adult Family History Family History Sibling Hypertension Mother Hypertension Diabetes mellitus Social History Social History Smoking status: Former smoker Tobacco type: cigarettes Second hand tobacco smoke exposure: No Smoking end date: 08/09/19 Substance use: never Lack of Transportation: No Lack of Food: Never True Current Housing: I Have Housing Concerned About Future Housing: No Difficulty Paying Gas/Electric Bills: No Difficulty Paying for Meds: No Currently Unemployed: No Education: Associate Degree Difficulty w/ Childcare or Family Care: No Gender identity (if verbalized by the patient): Female Spiritual care concerns: No Comments At the time of my signature, I reviewed and agree with the nursing past medical, surgical, social, and family history. There is no relevant family history pertinent to the patient complaint. Exam Narrative: General: Well-developed, obese, in no apparent distress Head: Normocephalic, atraumatic Eyes: Pupils equally round and reactive to light bilaterally, EOM intact, sclera and conjunctive clear, no discharge, lids normal Ears: TMs intact and clear, ear canals clear, no drainage, grossly hearing normal. Nose: Nares patent, clear nasal discharge, no inflammation, no sinus tenderness. Mouth: Oral pharynx without lesions or masses, good dentition, MMM. Postnasal drip Neck: Supple, trachea midline, no enlargement of anterior or posterior cervical nodes, no thyroid masses or goiter palpable. Cardio: Regular rate and rhythm, s1 and s2 normal, no murmur appreciated. Resp: Expiratory wheezing and rhonchi throughout lung mao, no rales or rubs Course Course Emergency Course: Portions of this record may have been created with voice recognition software. Level of Care: Express Care Visit Vital Signs Vital signs: Vital Signs Temperature 36.1 C L 05/23/22 13:01 Pulse Rate 89 05/23/22 13:01 Re
[2022-05-23 13:01] VITALS: BP 127/77; PULSE 89; RESP 16; TEMP 36.1; O2SAT 96
== END 2022-05-23 14:24 | disposition home or self-care (01) ==
PROVIDERS: Emergency Provider Nurse Practitioner Family; PCP Nurse Practitioner Family
DX: J40 Bronchitis, not specified as acute or chronic (principal); F17.210 Nicotine dependence, cigarettes, uncomplicated; J45.909 Unspecified asthma, uncomplicated; E11.9 Type 2 diabetes mellitus without complications; E66.01 Morbid (severe) obesity due to excess calories; Z68.41 Body mass index [BMI] 40.0-44.9, adult
CPT/HCPCS: 71046; 99213; G0463

== ENCOUNTER 2023-02-13 11:05 | Outpatient (CLI) | payer BC, SELFPAY ==
--- NOTE | ~2023-02-13 | US_ITS ---
EXAMINATION: US OB follow up DATE: 02/13/2023 11:30 INDICATION: Small for gestational age. Third trimester. TECHNIQUE: Real-time ultrasound of the pelvis was performed. COMPARISON: None. FINDINGS: There is a single living fetus in breech presentation. The placenta is anterior. heart rate is 146 beats per minute (bpm). The amniotic fluid index is 19.2 cm, which is normal. The following biometric data were obtained: Biparietal diameter (BPD): 8.6 cm; head circumference (HC): 31.3 cm; abdominal circumference (AC): 30 .8 cm; femur length (FL): 6.5 cm. These measurements are concordant. Estimated weight is 2424 g +/- 364 g, which correlates with the 95th percentile when 04/08/23 is used as estimated date of delivery. As single measurements, these parameters are each equal to the following estimated gestational ages: BPD: 34 weeks 4 days. HC: 35 weeks 0 days. AC: 34 weeks 5 days. FL: 33 weeks 4 days. estimated gestational age based solely on measurements from this exam is 34 weeks 3 days +/- 2 weeks 3 days. IMPRESSION: 1. Single living fetus in breech presentation. 2. Large for gestational age. Estimated weight is 2424 g +/- 364 g, which correlates with the 95th percentile when 04/08/23 is used as estimated date of delivery. Reviewed, dictated and finalized at location A. 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 Single living fetus in breech presentation. 2. Large for gestational age. Estimated weight is 2424 g +/- 364 g, whic h correlates with the 95th percentile when 04/08/23 is used as estimated date of delivery.
== END 2023-02-13 11:06 ==
LOC: MICIMG 11:05
PROVIDERS: PCP Obstetrics & Gynecology; Visit Provider Obstetrics & Gynecology
DX: O36.5990 Maternal care for other known or suspected poor fetal growth, unspecified trimester, not applicable or unspecified (principal); Z3A.34 34 weeks gestation of pregnancy
CPT/HCPCS: 76816

== ENCOUNTER 2023-03-29 10:21 | Outpatient (RCR) | payer BC, SELFPAY ==
[2023-02-17 17:14] VITALS: BP 114/66; PULSE 95
--- NOTE | 2023-02-17 17:44 | PC.NURSE ---
1744: Ob paged. 1745: Dr. Von Mohr responded to page. RN informed OB of patient's complaints of cramping. RN informed OB that patient has marked 3 cramps in a 15 min time frame, blood pressures are normal, and FHT are intermittent but Category 1. Orders to send a UA, and perform a SVE. Orders to discharge patient if urine is clean and cervix is closed and thick.
[2023-02-20 11:43] VITALS: BP 104/68; PULSE 96
[2023-02-27 10:57] VITALS: BP 133/74; PULSE 99
[2023-03-06 10:38] VITALS: BP 108/72; PULSE 100
[2023-03-13 14:25] VITALS: BP 122/64; PULSE 92
[2023-03-20 10:51] VITALS: BP 134/74; PULSE 91
[2023-03-27 13:41] VITALS: BP 137/75; PULSE 85
--- NOTE | ~2023-03-29 | US_ITS ---
EXAMINATION: US OB limited DATE: 03/29/2023 11:36 INDICATION: Gestational diabetes during third trimester TECHNIQUE: Real-time ultrasound of the pelvis was performed. The interpreting radiologist was not pre sent for the study. COMPARISON: 03/27/2023 FINDINGS: There is a single living fetus in breech presentation. The placenta is anterior. card iac activity and movement are noted. heart rate is 144 beats per minute (bpm). The amniot ic fluid index is 5.3 cm which is low (normal range: 7.3 cm to 23.9 cm). IMPRESSION: 1. Single living fetus in breech presentation. 2. Oligohydramnios. Reviewed, dictated and finalized at location B. STRIKER
--- NOTE | ~2023-03-29 | US_ITS ---
EXAMINATION: US OB limited w BPP DATE: 03/27/2023 13:30 INDICATION: Nonreactive nonstress test and gestational diabetes during third trimester . Ass ess biophysical profile and amniotic fluid index TECHNIQUE: Real-time pelvic ultrasound was performed. The interpreting radiologist was not present fo r the study. COMPARISON: None. FINDINGS: There is a single living fetus in breech presentation. The placenta is anterior. heart rate is 138 beats per minute (bpm). Normal amniotic fluid index of 7.8 cm (5th%-95%: 7.3-23.9 cm at 38 weeks estimated gestational age) Biophysical profile performed by the technologist: breathing (30 sec sustained breathing in 30 minutes): 2 out of 2 movement (3 gross body movements in 30 minutes): 2 out of 2 tone (one episode of nknwspf-cavqfrdwc-oyjigbl limb movement): 2 out of 2 Amniotic fluid pocket (2 cm): 2 out of 2 Total score: 8 out of 8 IMPRESSION: 1. Single living fetus in breech presentation with heart rate of 138 bpm. 2. Biophysical profile 8 out of 8. 3. Normal amniotic fluid index of 7.8 cm Reviewed, dictated and finalized at location A. [facility] [employer]AT[employer] CHIEF
[2023-03-29 10:52] LABS: Basophils Percent Auto 0.3 % (0.2-1.2); Eosinophils Absolute Auto 0.1 K/mm3 (0-0.3); Eosinophils Percent Auto 0.8 % (0-4.4); Hematocrit 35.1 % (37.0-47.0); Hemoglobin 10.9 g/dL (12.0-15.0); Immature Granulocyte Absolute 0.05 K/mm3 (0.00-0.031); Immature Granulocyte Percent A 0.6 % (0-0.5); Lymphocytes Absolute Auto 1.51 K/mm3 (0.9-3.2); Lymphocytes Percent Auto 17.1 % (18.3-44.2); Mean Corpuscular HGB Conc 31.1 g/dl (32-36); Mean Corpuscular Hemoglobin 25.9 pg (26-34); Mean Corpuscular Volume 83.4 fl (80-100); Mean Platelet Volume 9.4 fl (7.4-10.4); Monocytes Absolute Auto 0.5 K/mm3 (0.1-0.6); Monocytes Percent Auto 6.1 % (2.6-8.5); Neutrophils Absolute Auto 6.6 K/mm3 (1.3-6.7); Neutrophils Percent Auto 75.1 % (45.5-73.1); Platelet Count Result 231 k/mm3 (150-375); Red Blood Count 4.21 M/mm3 (4.2-5.4); Red Cell Distribution Width 14.7 % (11.5-14.5); White Blood Count 8.8 K/mm3 (4.5-10.0)
[2023-03-29 11:00] VITALS: BP 118/73; PULSE 89
--- NOTE | 2023-03-29 12:16 | PC.NURSE ---
1212: RN called Dr. Jaime's cell phone after 20 of no response from page. RN informed OB of patient's reactive NST. RN also informed OB of patient's JUAN JOSÉ of 5.33. OB aware of that JUAN JOSÉ was 7.8 on 03/27. OB stated she is scheduled for a section this Wednesday03/31/23 and OB would like to keep that date. Orders to discharge patient home with instruction on when to return to the hospital. 1218: RN informed patient to come back to hospital if the patient if she feels like baby is not moving as much as normal or if she feels like she is leaking any fluid.
[2023-03-29 14:57] LABS: Rapid Plasma Reagin Non-Reactive (NonReactive)
== END 2023-05-18 23:59 | disposition home or self-care (01) ==
LOC: ANHOBOP 10:21
PROVIDERS: PCP Obstetrics & Gynecology; Visit Provider Obstetrics & Gynecology
DX: O24.419 Gestational diabetes mellitus in pregnancy, unspecified control (principal); Z3A.32 32 weeks gestation of pregnancy; Z3A.33 33 weeks gestation of pregnancy; Z3A.34 34 weeks gestation of pregnancy; Z3A.35 35 weeks gestation of pregnancy; Z3A.36 36 weeks gestation of pregnancy; Z3A.37 37 weeks gestation of pregnancy; Z3A.38 38 weeks gestation of pregnancy
CPT/HCPCS: 36415; 59025; 76815; 76819; 85025; 86592; 86850; 86900; 86901

== ENCOUNTER 2023-03-31 05:34 | Inpatient (IN) | payer BC, SELFPAY ==
[2023-03-31] VITALS (93 sets, daily range): BP systolic 79–148; BP diastolic 48–128; PULSE 59–107; RESP 10–19; TEMP 36.3–36.9; O2SAT 96–100; BMI 45.8
[2023-03-31] MEDS: LACTATED RINGERS 1,000 ML 125 ML IV CONT ×2 (06:15→07:15)
--- NOTE | 2023-03-31 06:15 | LDADM ---
This patient, Aviva Arreola, was admitted to Labor/Delivery/Recovery 119 on 03/31/23 at 05:34. Plans for CS, pain management and were discussed with patient. Patient/family oriented to hospital policies and general routines including ID bracelet, bed and alarms, visiting hours, pain management, procedures, bathroom and other care routines, personal items, smoking policy, room service/diet and guest tray routines, infant security routines, and visiting hours. Patient/Family are encouraged to report perceived risks to care and to ask questions if they do not understand what they are told or what they should do. See OBIX for further documentation.
--- NOTE | 2023-03-31 06:29 | P.PNAN_ITS ---
Anes - Initial Pre Proc Eval Procedure: Operation Date: 03/31/23 07:30 Proposed Procedures p Primary Section - Pipe Knott MD Date/Time: 03/31/23 06:29 Surgeon: Pipe Knott MD Pre Op Diagnosis: C/S Patient Data Age: 42 Gender: F Height: Weight: Last Vital Signs Pulse 107 H 03/31/23 06:16 BP 147/93 H 03/31/23 06:16 Allergies Allergy/AdvReac Type Severity Reaction Status Date / Time No Known Allergies Allergy Verified 05/23/22 13:09 Home Medications Medication Instructions Recorded Confirmed Type vit no.95-ferrous 1 tablet PO DAILY 04/11/20 03/06/23 History fumarate 28 mg-folic acid 800 mcg tablet () albuterol sulfate 90 mcg/actuation 2 puff inhalation QID PRN Wheezing 01/17/22 03/06/23 History aerosol inhaler glyburide 2.5 mg tablet 2.5 mg PO DAILY 03/13/23 03/13/23 History Patient hx anesthesia problems: none Family hx anesthesia problems: none Results Review: All pre-operative results and documents have been reviewed as part of the pre- operative evaluation. [facility] Past Medical History Medical History Asthma Diabetes IUP (intrauterine ), incidental Morbid obesity with BMI of 40.0-44.9, adult Family History Family History Sibling Hypertension Mother Hypertension Diabetes mellitus Social History Social History Smoking status: Former smoker Tobacco type: cigarettes Second hand tobacco smoke exposure: No Smoking end date: 08/09/19 Substance use: never Lack of Transportation: No Lack of Food: Never True Current Housing: I Have Housing Concerned About Future Housing: No Difficulty Paying Gas/Electric Bills: No Difficulty Paying for Meds: No Currently Unemployed: No Education: Associate Degree Difficulty w/ Childcare or Family Care: No Gender identity (if verbalized by the patient): Female Spiritual care concerns: No Anes - Eval Final PreProcedure Day of Procedure 03/31/23 06:29 Patient weight: morbidly obese Heart: regular rate and rhythm Lungs: clear to auscultation Airway: Mallampati scale class II Neurological: alert and oriented Last oral intake: >/= 8 hours ASA classification: III Emergent: no Anesthetic plan: proceed Anesthesia type and monitoring: regional spinal and standard monitoring Results Review: All pre-operative results and documents have been reviewed as part of the pre- operative evaluation. Informed Consent: The patient's anesthetic plan and its attendant risks and benefits were discussed with the patient/family/POA. Questions were solicited and answers provided to the satisfaction of the patient/family/POA.
[2023-03-31] MEDS: ACETAMINOPHEN 500 MG TABLET 1000 MG PO (06:42)
[2023-03-31] MEDS: FAMOTIDINE 20 MG/2 ML VIAL IV PUSH (06:44)
[2023-03-31] MEDS: ONDANSETRON INJ 4 MG/2 ML VIAL IV PUSH (06:45)
--- NOTE | 2023-03-31 07:40 | PM.IMHP ---
H&P: HPI History of Present Illness Date/Time: 03/31/23 07:40 Chief Complaint: Here for c section Narrative: 42 y/o at 39 weeks gestation here for primary . She has A2DM, under good control with glyburide 2.5 mg po at bedtime. Baby is breech, and EFW was 9lbs at 37 weeks. AFW was 5.8 two days ago. She has good movement, rare contractions, no loss of fluid. GBS neg. Review of Systems Review of Systems: All systems reviewed & are unremarkable except as noted in HPI and below PMFSH Past Medical History Medical History Asthma Diabetes IUP (intrauterine ), incidental Morbid obesity with BMI of 40.0-44.9, adult Family History Family History Sibling Hypertension Mother Hypertension Diabetes mellitus Social History Social History Smoking status: Never smoker Tobacco type: cigarettes Second hand tobacco smoke exposure: No Smoking end date: 08/09/19 Substance use: never Do You Feel Safe in your Home?: Yes Lack of Transportation: No Lack of Food: Never True Current Housing: I Have Housing Concerned About Future Housing: No Difficulty Paying Gas/Electric Bills: No Difficulty Paying for Meds: No Currently Unemployed: No Education: Associate Degree Difficulty w/ Childcare or Family Care: No Gender identity (if verbalized by the patient): Female Spiritual care concerns: No Meds Home Medications and Allergies Home Medications Medication Instructions Recorded Confirmed Type vit no.95-ferrous 1 tablet PO DAILY 04/11/20 03/31/23 History fumarate 28 mg-folic acid 800 mcg tablet () albuterol sulfate 90 mcg/actuation 2 puff inhalation QID PRN Wheezing 01/17/22 03/31/23 History aerosol inhaler glyburide 2.5 mg tablet 2.5 mg PO DAILY 03/13/23 03/13/23 History Allergies Allergy/AdvReac Type Severity Reaction Status Date / Time No Known Allergies Allergy Verified 03/31/23 06:32 Vital Signs Vital Signs - 24 hr 03/31/23 05:50 03/31/23 06:16 03/31/23 06:31 Pulse Rate 97 107 H 92 Blood Pressure 120/67 147/93 H 116/78 Oxygen Delivery 03/31/23 07:06 03/31/23 07:14 03/31/23 07:16 Pulse Rate 83 85 86 Blood Pressure 114/66 108/48 L 107/52 L Oxygen Delivery 03/31/23 06:15 Pulse Rate Blood Pressure Oxygen Delivery Room Air Exam Const: Orientation/consciousness: patient oriented x3 Other: Well-developed, well-nourished female in no acute distress. Neck: Thyroid: thyroid normal Lymphatic: no lymphadenopathy noted (in neck, axilla or inguinal nodes) Resp: Effort & Inspection: normal respiratory effort Auscultation: clear to auscultation bilaterally Cardio: Rate: regular rate Rhythm: regular rhythm Heart sounds: S1 normal heart sound present and S2 normal heart sound present GI: Other: ABD: Soft, nontender, nondistended, gravid. No guarding or rebound tenderness. No hepatosplenomegaly. NST reactive. TOCO: rare contractions. Bedside ultrasound exam by me confirms breech presentation. : General: Yes no CVA tenderness Other: Cervix closed, thick Back/Spine/Pelvis: Back: no CVA tenderness Skin: General skin exam: normal color and no rashes or lesions noted Neuro: General: patient oriented x3 Extrem: Other: Extremities: nontender with no edema Psych: Mental Status: mental status grossly normal Affect: normal affect Assessment and Plan Assessment and plan (1) Term : Code(s): Z34.90 - Encounter for supervision of normal , unspecified, unspecified trimester Status: Acute Assessment and Plan: A: IUP at 39 weeks with A2DM, mild oligohydramnios, and breech presentation, with EFW 10lbs. P: Offered primary . She understands risks of surgery to in
--- NOTE | 2023-03-31 07:45 | WPDHPUPDATE1 ---
History and Physical Update Update Date/Time: 03/31/23 07:45 History and Physical has been reviewed, including an updated exam of the patient. There are NO changes in the patient's condition. Risks, benefits, and alternatives have been discussed and questions answered. Patient agrees to proceed with procedure.
--- NOTE | 2023-03-31 08:54 | W.PM.OBCSD ---
OB - Delivery Note Procedure Delivery date: 03/31/23 Pre-op diagnosis: Breech Presentation, Gestational Diabetes and Oligohydramnios Post-op Diagnosis: Same Induction method: None Delivery monitor: External FHT and External Uterine Procedure Performed: Primary Surgeon: Pipe Knott MD Anesthesia type: Spinal Description of Procedure/Findings: The patient was taken to the operating room where she was prepared and draped in the usual sterile fashion in dorsal supine position with a leftward tilt. She received cefazolin preoperatively. Spinal anesthesia was found to be adequate. A Pfannenstiel skin incision was made and carried through to the underlying layer of the fascia. The fascia was incised in the midline and the incision was extended laterally. The fascia was dissected free of the underlying rectus muscles. The rectus muscles were in the midline. The peritoneum was identified, tented up and entered sharply. The peritoneal incision was extended superiorly and inferiorly with good visualization of the bladder. The bladder blade was placed. The vesicouterine peritoneum was identified, tented up and entered sharply. The incision was extended laterally and the bladder flap was developed. The bladder blade was replaced. The uterus was then incised sharply in a transverse fashion along the lower uterine segment. The incision was extended laterally. The infant's breech was delivered to the level of the scapulae. The arms were swept across the chest and delivered. The head was gently flexed and easily delivered. The nose and mouth were bulb suctioned. After a delay, the cord was clamped and cut. The infant was handed off the field. Cord blood was collected. The placenta was removed manually and was passed off the field. The uterus was exteriorized and cleared of all clots and debris. The uterine incision was reapproximated using 0 Monocryl in a running, locked fashion. A second, imbricating layer of the same suture was run. Excellent hemostasis resulted as did excellent reapproximation of the normal anatomy. The uterus was returned the abdomen. The pelvis was irrigated copiously with warmed normal saline. Hemaderm was applied to the bladder flap. Rigorous hemostasis was assured. The fascial layer was reapproximated using 0 Vicryl in a running fashion. The skin was closed with a running, subcuticular stitch of 4 0 Vicryl. Dermaflex was applied externally. Sponge, lap, needle and instrument counts were correct. The patient was taken to the recovery room in stable condition. The went to the nursery in stable condition. I was present and scrubbed the entire procedure. Specimen: Yes (cord blood, placenta) Estimated Blood Loss: 285 Drains: Yes (delgado) Packing: No Pathology: Yes (placenta) Complications: None Condition: Stable Disposition: PACU Baby Date of : 03/31/23 Time of : 08:13 Weeks of gestation at delivery: 39 gender: Female Weight (pounds): 10 Weight (ounces): 11 presentation: breech Placenta delivery description: Manual Removal and Normal Configuration Cord Vessel Description: 3 Vessels score one minute: 8 score five minutes: 9
[2023-03-31] MEDS: OXYTOCIN 30 UNITS/NS 500 ML 30 UNITS/500 ML BAG 125 UNITS IV CONT ×2 (08:56→12:01)
--- NOTE | 2023-03-31 08:57 | PM.OBDSVD ---
DS: Admitting Diagnosis Discharge Date 04/03/23 Admitting Diagnosis IUP at 39 weeks A2DM Breech presentation Oligohydramnios DS: Discharge Diagnosis Discharge Diagnosis (1) delivery delivered: Code(s): O82 - Encounter for delivery without indication Status: Acute OB - DS: Summary OB Procedures : NST and Ultrasound OB Procedures Intrapartum: OB Procedures: : None Peripartum Data Procedures: Procedures Operation Date: 03/31/23 07:30 <No data on this case meets the specified criteria> Primary LTCS Time Spent with Patient Time attestation: Total time spent providing and/or coordinating discharge services: Discharge Plan Discharge Attending physician on discharge: Pipe Knott Discharging Clinician: Pipe Knott Patient Disposition: Home, Self-Care Activity: may shower, may drive after 2 weeks and pelvic rest Diet: regular Wound Care Instructions: incision open to air Discharge Instructions: Call or return if temperature above 100.4? F, increased abdominal pain, increased vaginal bleeding or any new problems. Stand Alone Forms: General Discharge Information Follow-up/Referrals: Pipe Knott MD [Physician] - 4 Weeks Discharge Medications: New ibuprofen 600 mg tablet 600 mg PO Q6H PRN (Reason: cramps) Qty: 30 0RF hydrocodone-acetaminophen 5-325 mg tablet 1 - 2 tablet PO Q6H PRN (Reason: pain) Qty: 30 0RF ferrous sulfate 325 mg (65 mg iron) tablet 325 mg PO DAILY Qty: 30 0RF Continued albuterol sulfate 90 mcg/actuation Hfa Aerosol Inhaler 2 puff INHALATION QID PRN (Reason: Wheezing) PNV cmb#95-ferrous fumarate-FA [] 28 mg iron- 800 mcg Tablet 1 tablet PO DAILY Discontinued glyburide 2.5 mg Tablet 2.5 mg PO DAILY Patient Comments: Pt unsure of dosage, recently started taking Date of admission: 03/31/23 05:34 Primary Care Provider: UNKNOWN,DOCTOR Admitting Provider: Pipe Knott Attending physician on admission: Pipe Knott Condition: Stable
--- NOTE | 2023-03-31 10:06 | SUR.PHASEI ---
Dr. Knott returned page and informed of pt's increased vaginal bleeding with clots. IV with Pitocin was increased to 250 ml/hr. Recovery QBL is 208. Order received for Methergine.
[2023-03-31] MEDS: METHYLERGONOVINE MALEATE 0.2 MG/ML VIAL IM (10:13)
--- NOTE | 2023-03-31 10:15 | SUR.PHASEI ---
Pt passed additional clots with fundal massage. Bi-manual exam performed and additional clots cleared.
[2023-03-31] MEDS: MORPHINE SULFATE INJ (*CRX) 10 MG/ML AMP 3 MG IV PUSH ×2 (10:44→12:21)
[2023-03-31 10:47] LABS: Glucose Point of Care 116 mg/dl (65-105)
--- NOTE | 2023-03-31 11:46 | SUR.PHASEI ---
Dr. Knott updated on QBL of 458 in recovery. Bleeding is normal now and no clots, but fundus is U+1 and I know she had a 10 lb baby. Pitocin was decreased back down to 125ml /hr, but not much left in bag. MD would like one more bag with Pitocin at 125ml/hr to follow this bag.
[2023-03-31] MEDS: miSOPROStol 200 MCG TABLET 1000 MCG RECTAL (12:30)
--- NOTE | 2023-03-31 13:23 | PC.NURSE ---
Patient transferred to post room #282 via wheelchair. Support person present. Oriented to unit, room, information board, rooming in, admission packet and security measures. Patient verbalizes understanding.
[2023-03-31] MEDS: IBUPROFEN 600 MG TABLET PO ×2 (14:42→20:32)
[2023-03-31] MEDS: SIMETHICONE 80 MG TAB.CHEW PO (14:42)
[2023-03-31] MEDS: ACETAMINOPHEN 325 MG TABLET 650 MG PO (14:43)
[2023-03-31] MEDS: DEXTROSE 5%/0.45% SOD CHL 1,000 ML 125 ML IV CONT (16:34)
[2023-03-31] MEDS: HYDROcodone/acetaminophen (*CRX) 10-325 MG TABLET 1 TAB PO (20:32)
[2023-04-01] MEDS: HYDROcodone/acetaminophen (*CRX) 10-325 MG TABLET 1 TAB PO ×5 (00:05→23:27)
[2023-04-01] MEDS: ACETAMINOPHEN 325 MG TABLET 650 MG PO ×4 (02:30→20:27)
[2023-04-01] MEDS: IBUPROFEN 600 MG TABLET PO ×4 (02:30→20:27)
[2023-04-01 04:20] VITALS: BP 107/64; PULSE 90; RESP 18; TEMP 36.4; O2SAT 100
[2023-04-01 05:25] LABS: Basophils Percent Auto 0.2 % (0.2-1.2); Eosinophils Absolute Auto 0.1 K/mm3 (0-0.3); Eosinophils Percent Auto 0.9 % (0-4.4); Hematocrit 29.5 % (37.0-47.0); Immature Granulocyte Absolute 0.05 K/mm3 (0.00-0.031); Immature Granulocyte Percent A 0.4 % (0-0.5); Lymphocytes Absolute Auto 1.34 K/mm3 (0.9-3.2); Mean Corpuscular HGB Conc 30.5 g/dl (32-36); Mean Corpuscular Hemoglobin 25.7 pg (26-34); Mean Corpuscular Volume 84.3 fl (80-100); Mean Platelet Volume 9.8 fl (7.4-10.4); Monocytes Absolute Auto 0.8 K/mm3 (0.1-0.6); Monocytes Percent Auto 7.2 % (2.6-8.5); Neutrophils Absolute Auto 8.9 K/mm3 (1.3-6.7); Neutrophils Percent Auto 79.3 % (45.5-73.1); Platelet Count Result 218 k/mm3 (150-375); Red Cell Distribution Width 14.8 % (11.5-14.5); White Blood Count 11.2 K/mm3 (4.5-10.0)
[2023-04-01] MEDS: SIMETHICONE 80 MG TAB.CHEW PO ×3 (07:00→17:23)
[2023-04-01] MEDS: POLYSACCHARIDE IRON COMPLEX 150 MG CAPSULE PO ×2 (07:00→17:23)
[2023-04-01] MEDS: DOCUSATE SODIUM 100 MG CAPSULE PO ×2 (07:00→17:23)
[2023-04-01] MEDS: MULTIVIT/MIN/PREN/FOL AC/IRON TABLET 1 TAB PO (07:00)
[2023-04-01 08:05] VITALS: BP 96/52; PULSE 88; RESP 16; TEMP 36.6; O2SAT 99
--- NOTE | 2023-04-01 08:28 | PM.OBPNVD ---
OB - PN: Subj Subjective Date/time seen: 04/01/23 08:28 Narrative: Pain OK. Tolerating diet. OB - PN: Obj Data Labs 04/01/23 04:16 Labs: Laboratory Results - last 24 hr 03/31/23 04/01/23 10:09 04:16 WBC 11.2 H RBC 3.50 L Hgb 9.0 L Hct 29.5 L MCV 84.3 MCH 25.7 L MCHC 30.5 L RDW 14.8 H Plt Count 218 MPV 9.8 Immature Gran % (Auto) 0.4 Neut % (Auto) 79.3 H Lymph % (Auto) 12.0 L [place] % (Auto) 7.2 Eos % (Auto) 0.9 Baso % (Auto) 0.2 Lymph # (Auto) 1.34 [place] # (Auto) 0.8 H Eos # (Auto) 0.1 Baso # (Auto) 0.0 Abs Immat Gran (auto) 0.05 H Absolute Neuts (auto) 8.9 H Absolute Nucleated RBC 0.0 Nucleated RBC % 0.0 POC Capillary Glucose 116 H OB - PN A/P Plan Comments: A: POD#1, doing well. P: Routine care. Time Spent With Patient Time: Total time spent is greater than 50% in coordination of care (as documented) at patient's floor/unit and/or counseling patient: Exam Narrative: AVSS I/O OK ABD soft, nontender, fundus firm. Incision c/d/i. EXT nontender
[2023-04-01] MEDS: LIDOCAINE 5% PATCH 1 PATCH TRANSDERM (08:34)
[2023-04-01 09:21] LABS: Hepatitis B Surface Antigen Negative (Negative)
[2023-04-01 09:38] LABS: HIV 1/2 Ab P24 Ag Result Negative (Negative); Hepatitis C Virus Antibody Negative (Negative)
--- NOTE | 2023-04-01 14:07 | WPDANLDPN2 ---
Anes-Prog Note L&D Date/Time: 04/01/23 14:07 Comfortable throughout: section Neuraxial method: spinal Epidural/Spinal procedure site: clean & non-tender Neuro status: Neuro function grossly intact. Cardiovascular status: normal Respiratory status: normal Airway patency: baseline Mental status: baseline Post-Op hydration status: normal Vital Signs: Last Vital Signs Temp 97.8 F 04/01/23 08:05 Pulse 88 04/01/23 08:05 Resp 16 04/01/23 08:05 BP 96/52 L 04/01/23 08:05 Pulse Ox 99 04/01/23 08:05 O2 Del Method Room Air 03/31/23 13:20 Pain score (VAS): 0/10 I/O: Intake & Output 03/31/23 04/01/23 04/01/23 23:59 07:59 15:59 Intake Total 3200 Output Total 2500 4600 Balance -2500 -1400 Post-procedural complaints: none Patient feedback: Patient satisfied with anesthetic care.
--- NOTE | 2023-04-01 14:07 | WPDANLDNPN2 ---
Anes-Prog Note L&D-Neuraxial Date/Time: 04/01/23 14:07 Neuraxial medications: intrathecal PF morphine Opiod-related complaints: none Patient feedback: Patient satisfied with post-operative pain management.
[2023-04-01 20:25] VITALS: BP 116/67; PULSE 93; RESP 18; TEMP 36.8; O2SAT 98
[2023-04-02] MEDS: IBUPROFEN 600 MG TABLET PO ×4 (02:33→21:25)
[2023-04-02] MEDS: ACETAMINOPHEN 325 MG TABLET 650 MG PO ×4 (02:34→21:25)
[2023-04-02] MEDS: HYDROcodone/acetaminophen (*CRX) 10-325 MG TABLET 1 TAB PO ×2 (05:35→17:17)
[2023-04-02 08:00] VITALS: BP 114/63; PULSE 88; RESP 16; TEMP 36.5; O2SAT 100
[2023-04-02] MEDS: DOCUSATE SODIUM 100 MG CAPSULE PO ×2 (08:37→17:17)
[2023-04-02] MEDS: MULTIVIT/MIN/PREN/FOL AC/IRON TABLET 1 TAB PO (08:37)
[2023-04-02] MEDS: SIMETHICONE 80 MG TAB.CHEW PO ×3 (08:37→17:17)
[2023-04-02] MEDS: POLYSACCHARIDE IRON COMPLEX 150 MG CAPSULE PO ×2 (08:37→17:17)
--- NOTE | 2023-04-02 12:25 | PM.OBPNVD ---
OB - PN: Subj Subjective Date/time seen: 04/02/23 12:25 Narrative: Pain OK. Tolerating diet. Would like to go home tomorrow. OB - PN: Obj Data Labs 04/01/23 04:16 OB - PN A/P Plan Comments: A: POD#2, doing well. P: Routine care. Home tomorrow to f/u 4 weeks. Exam Narrative: AVSS ABD soft, nontender, fundus firm. Incision c/d/i. EXT nontender
--- NOTE | 2023-04-02 13:26 | PC.NURSE ---
[id number] Purposefully rounded to assess for needs. Introductions were made, then mother woke up and shared she fell asleep and infant pinched her nipple on the left breast. Discussed with mother her?plans to feed?her infant, the?experience so far, and suggested to father of baby to offer water and a snack to encourage mother to stay awake while . Mother independently latched infant optimally to the left breast in cross cradle position. Education given to the mother of how to visualize the suckling (with good rocking jaw motion), swallows (dropping of the lower jaw) and how to listen for drinking at the breast (the ka sound) which demonstrated. Infant was able to maintain latch without pain to mother protecting the nipple with optimal positioning and latching. Reviewed comfort measures of healing with a warm, wet washcloth to rinse breast, then leave open to air-dry, good handwashing when or touching the breast/nipples to prevent infection. Mother states she is confident to continue effectively her infant at home, when to call for assistance, denies any additional assistance or education at this time. Reinforced understanding of milk production, transition of milk, signs of adequate intake, transition of stool, prevention/relief of engorgement, plugged ducts, mastitis, responsive watching for feeding cues, the different methods of stimulating infant to breastfeed 1-3 hours after the start of the last feeding, community resources, medication information reviewed per [facility] and when to call a provider using the resource of the mom and baby guide. Mother voiced understanding of the education shared. Reported to the Primary RN.
[2023-04-02] MEDS: LIDOCAINE 5% PATCH 1 PATCH TRANSDERM (15:10)
[2023-04-02 19:40] VITALS: BP 117/71; PULSE 90; RESP 18; O2SAT 100
[2023-04-03] MEDS: HYDROcodone/acetaminophen (*CRX) 10-325 MG TABLET 1 TAB PO ×2 (00:18→06:46)
[2023-04-03] MEDS: ACETAMINOPHEN 325 MG TABLET 650 MG PO (04:14)
[2023-04-03] MEDS: IBUPROFEN 600 MG TABLET PO ×2 (04:14→10:04)
[2023-04-03 07:00] VITALS: BP 117/67; PULSE 89; RESP 16; TEMP 36.4; O2SAT 98
[2023-04-03] MEDS: DOCUSATE SODIUM 100 MG CAPSULE PO (08:23)
[2023-04-03] MEDS: SIMETHICONE 80 MG TAB.CHEW PO (08:23)
[2023-04-03] MEDS: MULTIVIT/MIN/PREN/FOL AC/IRON TABLET 1 TAB PO (08:23)
[2023-04-03] MEDS: POLYSACCHARIDE IRON COMPLEX 150 MG CAPSULE PO (08:23)
--- NOTE | 2023-04-03 09:40 | PM.OBPNVD ---
OB - PN: Subj Subjective Date/time seen: 04/03/23 09:40 Narrative: Pain OK. Tolerating diet. Would like to go home. OB - PN: Obj Data Labs 04/01/23 04:16 OB - PN A/P Plan Comments: A: POD#3, doing well. P: Home to f/u 4 weeks. Exam Narrative: AVSS ABD soft, nontender, fundus firm. Incision c/d/i. EXT nontender
[2023-04-03] MEDS: HYDROcodone/acetaminophen (*CRX) 5-325 MG TABLET 1 TAB PO (10:04)
[2023-04-05 14:43] VITALS: BP 108/73; PULSE 101; RESP 18; TEMP 36.8; O2SAT 100
== END 2023-04-03 11:17 | disposition home or self-care (01) | DRG 787 ==
LOC: ANHLDR 08:59 → ANHOB2 13:24
PROVIDERS: Admitting Provider Obstetrics & Gynecology; Visit Provider Obstetrics & Gynecology
PROC: 10D00Z1 Extraction of Products of Conception, Low, Open Approach (ICD-10-PCS; CPT 59514; principal; 2023-03-31 07:30)
DX: O32.1XX0 Maternal care for breech presentation, not applicable or unspecified (principal); O41.03X0 Oligohydramnios, third trimester, not applicable or unspecified; O99.214 Obesity complicating childbirth; E66.01 Morbid (severe) obesity due to excess calories; O99.52 Diseases of the respiratory system complicating childbirth; J45.909 Unspecified asthma, uncomplicated; O24.425 Gestational diabetes mellitus in childbirth, controlled by oral hypoglycemic drugs; Z37.0 Single live birth; Z3A.39 39 weeks gestation of pregnancy
CPT/HCPCS: 36415; 82948; 85025; 86703; 86803; 87340; 88307; A9270; G0432; J2210; J2270; J2274; J2371; J2405; J2590; J7120

== ENCOUNTER 2023-04-26 14:33 | Emergency (ER) | payer BC, SELFPAY ==
[2023-04-26 15:02] VITALS: BP 137/82; PULSE 82; RESP 16; TEMP 36.2; O2SAT 100
--- NOTE | 2023-04-26 15:53 | ED.GENADULT ---
HPI - General Adult General Chief complaint: Dental/Oral Stated complaint: infection in tooth Time Seen by Provider: 04/26/23 15:53 Focused HPI: Aviva Arreola is a 42 y/o female with reports of having Pain to her left lower tooth on the she went to her Dentist on the and was told there was nothing wrong but heres some amoxicillin for 2 days on Wednesday she went to another dentist and was started on Clindamycin and was told that if it isn't getting any better call - but it did start to get better and she didn't call. Today she is concerned that she might be getting worse with an abscess that ruptured in her mouth. GENERAL: Well-appearing, well-nourished, and in no acute distress. HEAD: Normocephalic, atraumatic. CHEST: Clear to auscultation. ?No respiratory distress. HEART: Regular rate and rhythm.? NEURO: ?Alert and oriented x3. Patient screened in triage and initial orders placed.? ?Additional care and disposition to be based upon?diagnostic testing and treatment. History of Present Illness HPI narrative: Aviva Arreola is a 42 y/o female with reports of having Pain to her left lower tooth on the she went to her Dentist on the and was told there was nothing wrong but heres some amoxicillin for 2 days on Wednesday she went to another dentist and was started on Clindamycin and was told that if it isn't getting any better call - but it did start to get better and she didn't call. Today she is concerned that she might be getting worse with an abscess that ruptured in her mouth. SHe is also concerned because she only has a couple days left of the antibiotics, they gave her a weeks worth. Related Data Home Medications Medication Instructions Recorded Confirmed vit no.95-ferrous 1 tablet PO DAILY 04/11/20 03/31/23 fumarate 28 mg-folic acid 800 mcg tablet () albuterol sulfate 90 mcg/actuation 2 puff inhalation QID PRN Wheezing 01/17/22 03/31/23 aerosol inhaler Allergies Allergy/AdvReac Type Severity Reaction Status Date / Time No Known Allergies Allergy Verified 03/31/23 06:32 Review of Systems Review of Systems: All systems reviewed & are unremarkable except as noted in HPI and below PMFSH Past Medical History Medical History Asthma Diabetes IUP (intrauterine ), incidental Morbid obesity with BMI of 40.0-44.9, adult Family History Family History Sibling Hypertension Mother Hypertension Diabetes mellitus Social History Social History Smoking status: Never smoker Tobacco type: cigarettes Second hand tobacco smoke exposure: No Smoking end date: 08/09/19 Substance use: never Do You Feel Safe in your Home?: Yes Lack of Transportation: No Lack of Food: Never True Current Housing: I Have Housing Concerned About Future Housing: No Difficulty Paying Gas/Electric Bills: No Difficulty Paying for Meds: No Currently Unemployed: No Education: Associate Degree Difficulty w/ Childcare or Family Care: No Gender identity (if verbalized by the patient): Female Spiritual care concerns: No Exam Const: General: healthy appearing, no acute distress and alert Nutritional Appearance: well nourished Orientation/consciousness: patient oriented x3 Limitations: no limitations HENMT: Head: normal to inspection Ears: external ears normal Face/Nose/Sinus: Normal external nose present Eyes: Conjunctivae: conjunctivae normal Pupils: Equal, round and reactive pupils present Neck: Neck: normal visual inspection Resp: Effort & Inspection: normal respiratory effort Auscultation: clear to auscultation bilaterally Cardio: Rate: regular rate Rhythm: regular rhythm Skin: General skin exam: normal color Rashes: no rashes Wounds: no wounds Neuro: General: patient oriented x3 and moves all extr
== END 2023-04-26 17:16 | disposition home or self-care (01) ==
LOC: ANHED 17:08
PROVIDERS: Emergency Provider Nurse Practitioner Family
DX: K04.7 Periapical abscess without sinus (principal); J45.909 Unspecified asthma, uncomplicated; E11.9 Type 2 diabetes mellitus without complications; E66.01 Morbid (severe) obesity due to excess calories; Z68.41 Body mass index [BMI] 40.0-44.9, adult
CPT/HCPCS: 99283